=== PATIENT | female | born 1995 | race Asian ===

== ENCOUNTER → 2016-10-03 | Outpatient (REF) | payer BC | LOC: M SFHCLERA 16:13 | PROVIDERS: ATTEND Nurse Practitioner Family | DX: N89.8 Other specified noninflammatory disorders of vagina (principal); R35.0 Frequency of micturition ==

== ENCOUNTER → 2018-07-08 | Outpatient (REF) | payer BC | LOC: M SFHCLERA 10:50 | PROVIDERS: ATTEND Nurse Practitioner Family | DX: R53.81 Other malaise (principal) ==